=== PATIENT | female | born 1985 | race Caucasian/White ===

== ENCOUNTER 2018-08-14 19:00 | Inpatient (IN) | payer MEDICAID, SELFPAY ==
--- NOTE | 2018-08-14 19:50 | C.PDOC ---
Time Seen by Provider: 08/14/18 19:50 Chief Complaint (Nursing): Headache Past Medical History Vital Signs: Last Vital Signs Temp 98.2 F 08/14/18 19:10 Pulse 82 08/14/18 19:10 Resp 18 08/14/18 19:10 BP 140/82 08/14/18 19:10 Pulse Ox 98 08/14/18 19:10 - Medical History PMH: Depression, Hypercholesterolemia, Depression Denies: Diabetes, Hepatitis, HIV, HTN, Seizures, Sexually Transmitted Disease Surgical History: Cholecystectomy - [facility] GROUP PSYCHOTHERAPY (07/12/18) INDIVIDUAL PSYCHOTHERAPY, COGNITIVE-BEHAVIORAL (07/12/18) Family History: States: Unknown Family Hx - Social History Hx Alcohol Use: No Hx Substance Use: No ED Course And Treatment O2 Sat by Pulse Oximetry: 98 Disposition Counseled Patient/Family Regarding: Studies Performed, Diagnosis - Disposition Disposition Time: 19:50
[2018-08-14] MEDS ORDERED: Sodium Chloride 0.9% 1,000 ML IV SCH (20:00)
--- NOTE | 2018-08-14 20:02 | C.PDOC ---
History Of Present Illness The patient presents to the ED for evaluation of a headache which began around 3 days ago. Patient reports associated dizziness, intermittent left-sided tongue numbness, and occasional slurred speech. Patient reports her headache has worsened today and presents to the ED for further evaluation. She has not taken any medicine for symptoms and denies vision change, weakness, fever, chills, nausea, vomiting, and trauma. Time Seen by Provider: 08/14/18 19:50 Chief Complaint (Nursing): Headache History Per: Patient History/Exam Limitations: no limitations Onset/Duration Of Symptoms: Days (3), Intermittent Episodes Current Symptoms Are (Timing): Worse Severity: Moderate Pain Scale Rating Of: 4 Recent travel outside of the [place]: No Additional History Per: Patient, Family Past Medical History Reviewed: Historical Data, Nursing Documentation, Vital Signs Vital Signs: Last Vital Signs Temp 98.2 F 08/14/18 19:10 Pulse 82 08/14/18 19:10 Resp 18 08/14/18 19:10 BP 140/82 08/14/18 19:10 Pulse Ox 98 08/14/18 19:10 - Medical History PMH: Depression, Hypercholesterolemia, Depression Denies: Diabetes, Hepatitis, HIV, HTN, Seizures, Sexually Transmitted Disease Surgical History: Cholecystectomy - [facility] Procedures GROUP PSYCHOTHERAPY (07/12/18) INDIVIDUAL PSYCHOTHERAPY, COGNITIVE-BEHAVIORAL (07/12/18) Family History: States: Unknown Family Hx - Social History Hx Alcohol Use: No Hx Substance Use: No Review Of Systems Constitutional: Negative for: Fever, Chills Eyes: Negative for: Vision Change Cardiovascular: Negative for: Chest Pain, Palpitations Respiratory: Negative for: Cough, Shortness of Breath Gastrointestinal: Negative for: Nausea, Vomiting Genitourinary: Negative for: Dysuria Musculoskeletal: Negative for: Neck Pain, Shoulder Pain, Arm Pain, Back Pain Skin: Negative for: Rash, Lesions, Jaundice, Bruising Neurological: Positive for: Numbness (left-sided, tongue ), Change in Speech (occasional slurred), Headache, Dizziness. Negative for: Weakness Psych: Negative for: Anxiety Physical Exam - Physical Exam Appears: Non-toxic, In Acute Distress Skin: Warm, Dry Head: Normacephalic Eye(s): bilateral: Normal Inspection Oral Mucosa: Moist Tongue: Normal Appearing Neck: Supple Chest: Symmetrical, No Deformity, No Tenderness Cardiovascular: Rhythm Regular, No Murmur Respiratory: No Rales, No Rhonchi, No Wheezing Gastrointestinal/Abdominal: Soft, No Tenderness, No Distention Back: Normal Inspection Extremity: Normal ROM, Capillary Refill (less than 2 seconds ) Extremity: Bilateral: Atraumatic, No Pedal Edema, Normal Color And Temperature, Normal ROM Pulses: Left Dorsalis Pedis: Normal, Right Dorsalis Pedis: Normal Neurological/Psych: Oriented x3, Other (flat affect ) Gait: Steady ED Course And Treatment - Laboratory Results Result Diagrams: 08/14/18 20:12 08/14/18 20:12 O2 Sat by Pulse Oximetry: 98 (on RA ) Pulse Ox Interpretation: Normal Progress Note: Bloodwork, EKG, CXR, CT Head, CTA Head ordered and reviewed. IV fluids given. NIHSS Stroke Scale - Date/Time Evaluation Performed Date Performed: 08/14/18 Time Performed: 19:55 When Was NIHSS Performed: Baseline - How Severe is the Stroke Level of Consciousness: 0=Alert LOC to Questions: 0=Both comments correct LOC to commands: 0=Obeys both correctly Best Gaze: 0=Normal Visual: 0=No visual loss Facial: 0=Normal Motor Arm - Left: 0=No drift Motor Arm - Right: 0=No drift Motor Leg - Left: 0=No drift Motor Leg - Right: 0=No drift Limb Ataxia: 0=Absent Sensory: 0=Normal Best Language: 0=No aphasia Dysarthia: 0=Normal articulation Extinction & Inattention (Neglect): 0=Normal, no object Score: 0 Disposition Discussed With : Annmarie Xiong Comment: accepted the pt on his service and took over the care at 9:45 PM Doctor Will See Patient In The: Hospital Counseled Patient/Family Regarding: Studies Performed, Diagnosis, Need For Followup - Disposition Disposition: HOSPITALIZED Disposition Time: 20:01 Condition: FAIR Forms: [facility] (Turkish) - POA Present On Arrival: Poor Glycemic Control - Clinical Impression Clinical Impression: Headache, Paresthesia - Scribe Statement The provider has reviewed the documentation as recorded by the Scribe (Apryl Xiong) Provider Attestation: All medical record entries made by the Scribe were at my direction and personally dictated by me. I have reviewed the chart and agree that the record accurately reflects my personal performance of the history, physical exam, medical decision making, and the department course for this patient. I have also personally directed, reviewed, and agree with the discharge instructions and d isposition. Decision To Admit - Pt Status Changed To: Hospital Disposition Of: Inpatient - Admit Certification Admit to Inpatient:: After my assessment, the patient will require hospi talization for at least two midnights. This is because of the severity of symptoms shown, intensity of services needed, and/or the medical risk in this patient being treated as an outpatient. - InPatient: Physician Admission Certification: I certify that this patient requires 2 or more midnights of care for the following reason:: After my assessment, the pat ient will require hospitalization for at least two midnights. This is because of the severity of symptoms shown, intensity of services needed, and/or the medical risk in this patient being treated as an outpatient. - . Bed Request Type: Telemetry Admitting Physician: Annmarie Xiong Patient Diagnosis: Headache, Paresthesia
[2018-08-14] MEDS ORDERED: Iohexol 350mg/ml 100 ML ONE (20:07)
[2018-08-14 20:17] LABS: BASO # 0.1 K/uL (0.0-0.2); EOS # 0.2 K/uL (0.0-0.7); EOS % 2.5 % (0.0-4.0); HEMOGLOBIN 14.6 g/dL (11.0-16.0); LYMPH # 3.9 K/uL (1.0-4.3); LYMPH % 40.2 % (20.0-40.0); MEAN CORPUSCULAR HEMOGLOBIN 28.9 pg (27.0-31.0); MEAN CORPUSCULAR HGB CONC 32.1 g/dL (33.0-37.0); MONO # 0.6 K/uL (0.0-0.8); MONO % 6.5 % (0.0-10.0); NEUT # 4.8 K/uL (1.8-7.0); NEUT % 49.8 % (50.0-75.0); NRBC % 0.1 % (0.0-2.0); RBC 5.05 Mil/uL (3.80-5.20); WHITE BLOOD COUNT 9.6 K/uL (4.8-10.8)
[2018-08-14 20:21] LABS: MEAN CELL VOLUME 90.3 fL (81.0-99.0)
[2018-08-14 20:26] LABS: PROTHROMBIN TIME 11.1 SECONDS (9.7-12.2)
[2018-08-14 20:30] LABS: ALB/GLOB RATIO 1.4 (1.0-2.1); ALBUMIN 4.7 g/dL (3.5-5.0); ALT/SGPT 37 U/L (9-52); AST/SGOT 28 U/L (14-36); BLOOD UREA NITROGEN 13 mg/dL (7-17); CALCIUM 9.1 mg/dl (8.6-10.4); GFR NON-AFRICAN AMERICAN > 60; HDL CHOLESTEROL 63 mg/dL (30-70)
[2018-08-14 20:42] LABS: LDL CHOLESTEROL 126 mg/dL (0-129)
[2018-08-14 21:59] LABS: HCG,QUALITATIVE URINE NEGATIVE (NEGATIVE)
[2018-08-14 22:04] LABS: SQUAMOUS EPITHIAL 1 /hpf (0-5); URINE BILIRUBIN NEGATIVE (NEGATIVE); URINE BLOOD NEGATIVE (NEGATIVE); URINE CLARITY Clear (Clear); URINE COLOR Straw (YELLOW); URINE GLUCOSE (UA) NORMAL (Normal); URINE LEUKOCYTE ESTERASE NEG Leu/uL (Negative); URINE PROTEIN NEGATIVE (NEGATIVE); URINE UROBILINOGEN NORMAL mg/dL (0.2-1.0)
--- NOTE | 2018-08-14 22:40 | CP.PCM.HP ---
Present on Admission - Present on Admission Any Indicators Present on Admission: No Past Patient History - Tetanus Immunizations Tetanus Immunization: Unknown - Past Social History Smoking Status: Never Smoked - CARDIAC Hx Hypercholesterolemia: Yes Hx Hypertension: No - PULMONARY Hx Tuberculosis: No - NEUROLOGICAL Hx Seizures: No - HEMATOLOGICAL/ONCOLOGICAL Hx Human Immunodeficiency Virus (HIV): No - GENITOURINARY/GYNECOLOGICAL Hx Sexually Transmitted Disorders: No - PSYCHIATRIC Hx Depression: Yes Hx Substance Use: No - SURGICAL HISTORY Hx Cholecystectomy: Yes - ANESTHESIA Hx Anesthesia: Yes Hx Anesthesia Reactions: No Hx Malignant Hyperthermia: No Meds Allergies/Adverse Reactions: Allergies Allergy/AdvReac Type Severity Reaction Status Date / Time Penicillins Allergy RASH Verified 08/14/18 19:15 Results - Vital Signs Recent Vital Signs: Last Vital Signs Temp 98.2 F 08/14/18 19:10 Pulse 80 08/14/18 21:00 Resp 14 08/14/18 21:00 BP 118/78 08/14/18 21:00 Pulse Ox 98 08/14/18 21:47 - Labs Result Diagrams: 08/14/18 20:12 08/14/18 20:12 Labs: Laboratory Results - last 24 hr 08/14/18 08/14/18 08/14/18 19:57 20:12 20:12 WBC 9.6 D RBC 5.05 Hgb 14.6 Hct 45.5 MCV 90.3 D MCH 28.9 MCHC 32.1 L RDW 14.0 Plt Count 302 MPV 8.0 Neut % (Auto) 49.8 L Lymph % (Auto) 40.2 H Orange % (Auto) 6.5 Eos % (Auto) 2.5 Baso % (Auto) 1.0 Neut # (Auto) 4.8 Lymph # (Auto) 3.9 Orange # (Auto) 0.6 Eos # (Auto) 0.2 Baso # (Auto) 0.1 PT 11.1 INR 1.0 APTT 26 Sodium Potassium Chloride Carbon Dioxide Anion Gap BUN Creatinine Est GFR ( Amer) Est GFR (Non-Af Amer) POC Glucose (mg/dL) 92 Random Glucose Hemoglobin A1c Calcium Total Bilirubin AST ALT Alkaline Phosphatase Troponin I Total Protein Albumin Globulin Albumin/Globulin Ratio Triglycerides Cholesterol LDL Cholesterol Direct HDL Cholesterol Urine Color Urine Clarity Urine pH Ur Specific [place] Urine Protein Urine Glucose (UA) Urine Ketones Urine Blood Urine Nitrate Urine Bilirubin Urine Urobilinogen Ur Leukocyte Esterase Urine RBC (Auto) Ur Squamous Epith Cells Urine HCG, Qual Blood Type Antibody Screen Antibody Identification 08/14/18 08/14/18 08/14/18 20:12 20:12 20:12 WBC RBC Hgb Hct MCV MCH MCHC RDW Plt Count MPV Neut % (Auto) Lymph % (Auto) Orange % (Auto) Eos % (Auto) Baso % (Auto) Neut # (Auto) Lymph # (Auto) Orange # (Auto) Eos # (Auto) Baso # (Auto) PT INR APTT Sodium 136 Potassium 4.0 Chloride 101 Carbon Dioxide 25 Anion Gap 15 BUN 13 Creatinine 0.8 Est GFR ( Amer) > 60 Est GFR (Non-Af Amer) > 60 POC Glucose (mg/dL) Random Glucose 58 L D Hemoglobin A1c 5.4 Calcium 9.1 Total Bilirubin 0.4 AST 28 ALT 37 Alkaline Phosphatase 52 Troponin I < 0.0120 Total Protein 8.0 Albumin 4.7 Globulin 3.3 Albumin/Globulin Ratio 1.4 Triglycerides 145 D Cholesterol 216 H LDL Cholesterol Direct 126 HDL Cholesterol 63 Urine Color Urine Clarity Urine pH Ur Specific [place] Urine Protein Urine Glucose (UA) Urine Ketones Urine Blood Urine Nitrate Urine Bilirubin Urine Urobilinogen Ur Leukocyte Esterase Urine RBC (Auto) Ur Squamous Epith Cells Urine HCG, Qual Blood Type A NEGATIVE Antibody Screen Positive Antibody Identification ANTI D DUE TO RhoGAM 08/14/18 21:50 WBC RBC Hgb Hct MCV MCH MCHC RDW Plt Count MPV Neut % (Auto) Lymph % (Auto) Orange % (Auto) Eos % (Auto) Baso % (Auto) Neut # (Auto) Lymph # (Auto) [place] # (Auto) Eos # (Auto) Baso # (Auto) PT INR APTT Sodium Potassium Chloride Carbon Dioxide Anion Gap BUN Creatinine Est GFR ( Amer) Est GFR (Non-Af Amer) POC Glucose (mg/dL) Random Glucose Hemoglobin A1c Calcium Total Bilirubin AST ALT Alkaline Phosphatase Troponin I Total Protein Albumin Globulin Albumin/Globulin Ratio Triglycerides Cholesterol LDL Cholesterol Direct HDL Cholesterol Urine Color Straw Urine Clarity Clear Urine pH 6.0 Ur Specific [place] 1.010 Urine Protein Negative Urine Glucose (UA) Normal Urine Ketones Negative Urine Blood Negative Urine Nitrate Negative Urine Bilirubin Negative Urine Urobilinogen Normal Ur Leukocyte Esterase Neg Urine RBC (Auto) < 1 Ur Squamous Epith Cells 1 Urine HCG, Qual Negative Blood Type Antibody Screen Antibody Identification Assessment & Plan - Assessment and Plan (Free Text) Plan: asp crestoir mri mra neuro
[2018-08-14] MEDS ORDERED: Dextrose 50% SYRINGE Inj (50 ml) ONE (23:31)
[2018-08-15] MEDS ORDERED: Dextrose 50% SYRINGE Inj (50 ml) IV STA (00:05)
[2018-08-15] MEDS: Dextrose 5%/0.45% NS 1,000 ML IV SCH ×3 (01:00→21:59)
--- NOTE | 2018-08-15 10:06 | CT ---
Date of service: 08/14/2018 PROCEDURE: CT HEAD WITHOUT CONTRAST. HISTORY: Code Stroke COMPARISON: None available. TECHNIQUE: Axial computed tomography images were obtained through the head/brain without intravenous contrast. Radiation dose: Total exam DLP = 1074.47 mGy-cm. This CT exam was performed using one or more of the following dose reduction techniques: Automated exposure control, adjustment of the mA and/or kV according to patient size, and/or use of iterative reconstruction technique. FINDINGS: HEMORRHAGE: No intracranial hemorrhage. BRAIN: No mass effect or edema. No atrophy or chronic microvascular ischemic changes. VENTRICLES: Unremarkable. No hydrocephalus. CALVARIUM: Unremarkable. PARANASAL SINUSES: Unremarkable as visualized. No significant inflammatory changes. MASTOID AIR CELLS: Unremarkable as visualized. No inflammatory changes. OTHER FINDINGS: None. IMPRESSION: Normal CT of the Head. No evidence of acute infarct. No intracranial mass or hemorrhage. The preliminary findings for this examination were reported by [facility] at 8:32 p.m. on 08/14/2018. There is concurrence of this report with the preliminary findings.
[2018-08-15] MEDS: Enoxaparin 40 mg Syringe SC SCH (10:33)
[2018-08-15] MEDS: Pantoprazole 40 mg EC Tab PO SCH (10:33)
--- NOTE | 2018-08-15 10:34 | CT ---
Date of service: 08/14/2018 PROCEDURE: CT Angiography of the Brain. HISTORY: numb left tongue and headache COMPARISON: None available. TECHNIQUE: CT angiography of the head and neck was performed following intravenous contrast administration. Coronal and sagittal maximum intensity projection reformatted images were generated. Contrast Dose: Omnipaque 350, 100 cc Radiation dose: Total exam DLP = 622.72 mGy-cm. This CT exam was performed using one or more of the following dose reduction techniques: Automated exposure control, adjustment of the mA and/or kV according to patient size, and/or use of iterative reconstruction technique. FINDINGS: INTERNAL CEREBRAL ARTERIES: Unremarkable. The skull base, petrous, cavernous and supraclinoid segments are bilaterally widely patent. ANTERIOR CEREBRAL ARTERIES: The bilateral A1 and A2 segments are patent with mild hypoplasia of the right A1 segment. Smaller distal branches unremarkable, as visualized. MIDDLE CEREBRAL ARTERIES: Unremarkable. M1 and M2 segments are widely patent. Perisylvian branches grossly symmetric. POSTERIOR CIRCULATION: Basilar Artery: Unremarkable. Distal Vertebral Arteries: Unremarkable. Posterior Cerebral Arteries: Unremarkable. Posterior Inferior Cerebellar Arteries: Unremarkable. 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 Common Carotid arteries: The bilateral common carotid appear widely patent from their origins to their bifurcations with no significant stenosis appreciated. No evidence to suggest common carotid artery dissection. Internal Carotid arteries: No significant stenosis is appreciated throughout the cervical internal carotid artery segments bilaterally and there is no evidence of dissection either. External Carotid arteries: Appear unremarkable bilaterally. Vertebral arteries: The bilateral vertebral arteries appear normal in caliber from their origins to their distal cervical segments. No significant stenosis or definite pattern of dissection. ANEURYSM/ VASCULAR MALFORMATIONS: None. OTHER FINDINGS: None. IMPRESSION: Unremarkable CT Angiography of the Brain and Neck.
--- NOTE | 2018-08-15 11:08 | RAD ---
Chest x-ray single frontal view HISTORY: Code stroke. Comparison: None available. Findings: Mild venous congestion. Heart size within normal limits. Impression: Mild venous congestion.
--- NOTE | 2018-08-15 11:42 | MRI ---
Date of service: 08/15/2018 PROCEDURE: Magnetic Resonance Angiography Brain HISTORY: left tongue numbness COMPARISON: None available. TECHNIQUE: 3D time of flight MR angiography of the intracranial arteries was performed. Rotating maximum intensity projection images were generated. FINDINGS: INTERNAL CAROTID ARTERIES: There is a tiny 2.8 x 2.0 mm aneurysm extending medially off the distal cavernous left ICA with the right cavernous ICA unremarkable. Both internal carotid artery cavernous segments are widely patent regardless. The skull base, petrous, and supraclinoid segments are bilaterally widely patient. ANTERIOR CEREBRAL ARTERIES: Unremarkable. A1 and A2 segments are widely patent. Smaller distal branches unremarkable, as visualized. MIDDLE CEREBRAL ARTERIES: Unremarkable. M1 and M2 segments are widely patent. Perisylvian branches grossly symmetric. POSTERIOR CIRCULATION: Basilar Artery: Unremarkable. Distal Vertebral Arteries: Left dominant vertebrobasilar circulation identified. Posterior Cerebral Arteries: Unremarkable. Posterior Inferior Cerebellar Arteries: Unremarkable. ANEURYSM/ VASCULAR MALFORMATIONS: None. OTHER FINDINGS: None. IMPRESSION: No occlusion or significant stenosis significant stenosis identified in MR angiography of the brain. However, there is a 2.8 x 2.0 mm aneurysm identified medially off the distal left ICA cavernous segment.
--- NOTE | 2018-08-15 11:52 | MRI ---
Date of service: 08/15/2018 PROCEDURE: MRI BRAIN WITHOUT CONTRAST HISTORY: headache and numbness left side tongue COMPARISON: None available. TECHNIQUE: Multiplanar, multisequence MR images of the brain were obtained without intravenous contrast enhancement. FINDINGS: HEMORRHAGE: None DWI: No evidence of an acute or early subacute infarction. BRAIN PARENCHYMA: Intrinsic signal throughout the kerr and white matter structures above below the tentorium appears within normal limits including the brainstem. There is no mass effect, parenchymal edema or loss of the corticomedullary differentiation. Midline brain anatomy appears within normal limits including the corpus callosum, brainstem and craniocervical junction. There is no suspicious extra-axial fluid collection identified. VENTRICLES: Unremarkable. No hydrocephalus. CRANIUM: Unremarkable. ORBITS: Grossly unremarkable. PARANASAL SINUSES/MASTOIDS: Clear VASCULAR SYSTEM: Skull base flow voids intact. OTHER FINDINGS: None. IMPRESSION: Unremarkable non contrast enhanced MRI of the brain.
--- NOTE | 2018-08-15 11:57 | CP.PCM.CON ---
History of Present Illness - History of Present Illness History of Present Illness: Neurology Consult note for Dr. Goodman HPI: Patient is a 32 year old female with history of asthma, depression, hyperlipidemia who presents for 4 day history of intermittent numbness to the right side of her tongue that initially started 4 days ago, associated with the sensation that her tongue deviates to the left. She states that her symptoms of numbness last for "hours" but come and go on their own. She denies eating any new foods. She states that she had an episode of dizziness described as room spinning sensation that lasted a few seconds 4 days ago when she bent over to pick something up, but resolved afterward. She states she has not had any dizziness since then. She states she started to experience a headache described as "itching" and "pulsing" of her head all over associated with the feeling that something was crawling , rated 5/10, that was not aggravated by light or sound. She denies recent falls or head trauma or accidents. She denies history of seizures, lightheadedness, headache, nausea, vomiting, vision changes, hearing changes. She denies any jerking or facial tics. She denies experiencing headache or dizziness currently but states that the right side of her tongue feels a little numb compared to the left. 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 She was admitted at [facility] for psychiatric evaluation and discharged home with Abilify 2mg PO HS, Lexapro 10mg PO HS, Trazadone 50mg PO HS. She states she has been compliant with her medications. She denies any thoughts of harming self or others. PMH: asthma, depression, hyperlipidemia PSH: cholecystectomy Social hx: denies alcohol, tobacco or drug use. Works in an office. Currently lives with 5 year old daughter, at home. Home meds: Fenofibrate, Abilify 2mg PO HS, Lexapro 10mg PO HS, Trazadone 50mg PO HS Allergies: PCN, lactose -> rash PMD: [facility] Gastel Psych: at [facility] Review of Systems - Constitutional Constitutional: Headache. absent: Chills, Fever - EENT Eyes: absent: Blurred Vision, Change in Vision, Loss of Vision Ears: Dizziness. absent: Decreased Hearing - Cardiovascular Cardiovascular: absent: Chest Pain, Dyspnea, Irregular Heart Rhythm - Respiratory Respiratory: absent: Cough, Dyspnea - Gastrointestinal Gastrointestinal: absent: Abdominal Pain, Nausea, Vomiting - Reproductive: Female Reproductive:Female: Menses 1-7 Days - Musculoskeletal Musculoskeletal: Numbness (right tongue numbness). absent: Back Pain, Neck Pain - Neurological Neurological: absent: Confusion, Focal Weakness, Loss of Vision - Psychiatric Psychiatric: Depression. absent: Anxiety Past Patient History - Tetanus Immunizations Tetanus Immunization: Unknown - Past Medical History & Family History Past Medical History?: Yes - Past Social History Smoking Status: Never Smoked - CARDIAC Hx Hypercholesterolemia: Yes - PULMONARY Hx Tuberculosis: No - NEUROLOGICAL Hx Seizures: No - HEMATOLOGICAL/ONCOLOGICAL Hx Human Immunodeficiency Virus (HIV): No - MUSCULOSKELETAL/RHEUMATOLOGICAL Hx Falls: No - GENITOURINARY/GYNECOLOGICAL Hx Sexually Transmitted Disorders: No - PSYCHIATRIC Hx Depression: Yes Hx Substance Use: No - SURGICAL HISTORY Hx Cholecystectomy: Yes - ANESTHESIA Hx Anesthesia: Yes Hx Anesthesia Reactions: No Hx Malignant Hyperthermia: No Meds Allergies/Adverse Reactions: Allergies Allergy/AdvReac Type Severity Reaction Status Date / Time Penicillins Allergy RASH Verified 08/14/18 19:15 - Medications Medications: Current Medications Aspirin (Aspirin) 325 mg PO DAILY [facility] Last Admin: 08/15/18 10:33 Dose: 325 mg Enoxaparin Sodium (Lovenox) 40 mg SC DAILY [facility] Last Admin: 08/15/18 10:33 Dose: 40 mg Dextrose/Sodium Chloride (Dextrose 5%/0.45% Ns 1000 Ml) 1,000 mls @ 75 mls/hr IV .[id number] [facility] Last Admin: 08/15/18 01:00 Dose: 75 mls/hr Pantoprazole Sodium (Protonix Ec Tab) 40 mg PO DAILY [facility] Last Admin: 08/15/18 10:33 Dose: 40 mg Physical Exam - Constitutional Appears: Well, No Acute Distress - Head Exam Head Exam: ATRAUMATIC, NORMOCEPHALIC - Eye Exam Eye Exam: EOMI, PERRL. absent: Nystagmus - ENT Exam ENT Exam: Mucous Membranes Moist - Neck Exam Neck exam: Positive for: Full Rom. Negative for: Lymphadenopathy, Tenderness - Respiratory Exam Respiratory Exam: Clear to Auscultation Bilateral, NORMAL BREATHING PATTERN - Cardiovascular Exam Cardiovascular Exam: REGULAR RHYTHM, +S1, +S2 - GI/Abdominal Exam GI & Abdominal Exam: Normal Bowel Sounds, Soft. absent: Tenderness - Extremities Exam Extremities exam: Positive for: pedal pulses present. Negative for: calf tenderness, pedal edema - Neurological Exam Neurological exam: Alert, Oriented x3 Additional comments: Strength 5/5 in upper and lower extremities Sensation equal in upper and lower extremities Tongue: decreased sensation on right side of tongue. no obvious deviation of tongue to left on exam. Tongue midline Patient only opens mouth slightly. No obvious lacerations on tongue Sensation equal in face bilaterally Finger to nose intact Heel to parker intact. - Psychiatric Exam Psychiatric exam: Flat Affect - Skin Skin Exam: Dry, Intact, Warm Results - Vital Signs Recent Vital Signs: Last Vital Signs Temp 97.9 F 08/15/18 07:15 Pulse 92 H 08/15/18 07:15 Resp 20 08/15/18 07:15 BP 130/84 08/15/18 07:15 Pulse Ox 98 08/15/18 07:15 - Labs Result Diagrams: 08/14/18 20:12 08/14/18 20:12 Labs: Laboratory Results - last 24 hr 08/14/18 08/14/18 08/14/18 19:57 20:12 20:12 WBC 9.6 D RBC 5.05 Hgb 14.6 Hct 45.5 MCV 90.3 D MCH 28.9 MCHC 32.1 L RDW 14.0 Plt Count 302 MPV 8.0 Neut % (Auto) 49.8 L Lymph % (Auto) 40.2 H [place] % (Auto) 6.5 Eos % (Auto) 2.5 Baso % (Auto) 1.0 Neut # (Auto) 4.8 Lymph # (Auto) 3.9 Sumner # (Auto) 0.6 Eos # (Auto) 0.2 Baso # (Auto) 0.1 PT 11.1 INR 1.0 APTT 26 Sodium Potassium Chloride Carbon Dioxide Anion Gap BUN Creatinine Est GFR ( Amer) Est GFR (Non-Af Amer) POC Glucose (mg/dL) 92 Random Glucose Hemoglobin A1c Calcium Total Bilirubin AST ALT Alkaline Phosphatase Troponin I Total Protein Albumin Globulin Albumin/Globulin Ratio Triglycerides Cholesterol LDL Cholesterol Direct HDL Cholesterol Urine Color Urine Clarity Urine pH Ur Specific [place] Urine Protein Urine Glucose (UA) Urine Ketones Urine Blood Urine Nitrate Urine Bilirubin Urine Urobilinogen Ur Leukocyte Esterase Urine RBC (Auto) Ur Squamous Epith Cells Urine HCG, Qual Blood Type Antibody Screen Antibody Identification 08/14/18 08/14/18 08/14/18 20:12 20:12 20:12 WBC RBC Hgb Hct MCV MCH MCHC RDW Plt Count MPV Neut % (Auto) Lymph % (Auto) [place] % (Auto) Eos % (Auto) Baso % (Auto) Neut # (Auto) Lymph # (Auto) [place] # (Auto) Eos # (Auto) Baso # (Auto) PT INR APTT Sodium 136 Potassium 4.0 Chloride 101 Carbon Dioxide 25 Anion Gap 15 BUN 13 Creatinine 0.8 Est GFR ( Amer) > 60 Est GFR (Non-Af Amer) > 60 POC Glucose (mg/dL) Random Glucose 58 L D Hemoglobin A1c 5.4 Calcium 9.1 Total Bilirubin 0.4 AST 28 ALT 37 Alkaline Phosphatase 52 Troponin I < 0.0120 Total Protein 8.0 Albumin 4.7 Globulin 3.3 Albumin/Globulin Ratio 1.4 Triglycerides 145 D Cholesterol 216 H LDL Cholesterol Direct 126 HDL Cholesterol 63 Urine Color Urine Clarity Urine pH Ur Specific [place] Urine Protein Urine Glucose (UA) Urine Ketones Urine Blood Urine Nitrate Urine Bilirubin Urine Urobilinogen Ur Leukocyte Esterase Urine RBC (Auto) Ur Squamous Epith Cells Urine HCG, Qual Blood Type A NEGATIVE Antibody Screen Positive Antibody Identification ANTI D DUE TO RhoGAM 08/14/18 21:50 WBC RBC Hgb Hct MCV MCH MCHC RDW Plt Count MPV Neut % (Auto) Lymph % (Auto) [place] % (Auto) Eos % (Auto) Baso % (Auto) Neut # (Auto) Lymph # (Auto) [place] # (Auto) Eos # (Auto) Baso # (Auto) PT INR APTT Sodium Potassium Chloride Carbon Dioxide Anion Gap BUN Creatinine Est GFR ( Amer) Est GFR (Non-Af Amer) POC Glucose (mg/dL) Random Glucose Hemoglobin A1c Calcium Total Bilirubin AST ALT Alkaline Phosphatase Troponin I Total Protein Albumin Globulin Albumin/Globulin Ratio Triglycerides Cholesterol LDL Cholesterol Direct HDL Cholesterol Urine Color Straw Urine Clarity Clear Urine pH 6.0 Ur Specific [place] 1.010 Urine Protein Negative Urine Glucose (UA) Normal Urine Ketones Negative Urine Blood Negative Urine Nitrate Negative Urine Bilirubin Negative Urine Urobilinogen Normal Ur Leukocyte Esterase Neg Urine RBC (Auto) < 1 Ur Squamous Epith Cells 1 Urine HCG, Qual Negative Blood Type Antibody Screen Antibody Identification Assessment & Plan - Assessment and Plan (Free Text) Assessment: 32 year old female with history of asthma, hyperlipidemia and depression who presents for right sided tongue numbness. Plan: Numbness of tongue Distal Left ICA aneurysm CT head: Normal CT of the Head. No evidence of acute infarct. No intracranial mass or hemorrhage. CTA head/neck: unremarkable MRI brain without contrast Unremarkable non contrast enhanced MRI of the brain. MRA No occlusion or significant stenosis significant stenosis identified in MR angiography of the brain. However, there is a 2.8 x 2.0 mm aneurysm identified medially off the distal left ICA cavernous segment. Neurointerventionalist Dr. Davis consulted regarding aneurysm. Suggest psychiatric evaluation to r/o conversion disorder. Case discussed with Dr. Rex Yi, PGY1
--- NOTE | 2018-08-15 14:17 | CARD ---
APPROVED REPORT Date of service: 08/14/2018 EKG Measurement Heart [id number] <Conclusion> Normal sinus rhythm Normal ECG
--- NOTE | 2018-08-15 18:17 | CP.PCM.PN ---
Subjective - Date & Time of Evaluation Date of Evaluation: 08/15/18 Time of Evaluation: 11:15 - Subjective Subjective: clinically same Objective - Vital Signs/Intake and Output Vital Signs (last 24 hours): Temp Pulse Resp BP Pulse Ox 97.9 F 106 H 20 130/84 98 08/15/18 07:15 08/15/18 16:30 08/15/18 07:15 08/15/18 07:15 08/15/18 07:15 - Medications Medications: Current Medications Aspirin (Aspirin) 325 mg PO DAILY [facility] Last Admin: 08/15/18 10:33 Dose: 325 mg Enoxaparin Sodium (Lovenox) 40 mg SC DAILY [facility] Last Admin: 08/15/18 10:33 Dose: 40 mg Dextrose/Sodium Chloride (Dextrose 5%/0.45% Ns 1000 Ml) 1,000 mls @ 75 mls/hr IV .[id number] [facility] Last Admin: 08/15/18 14:13 Dose: Not Given Pantoprazole Sodium (Protonix Ec Tab) 40 mg PO DAILY [facility] Last Admin: 08/15/18 10:33 Dose: 40 mg - Labs Labs: 08/14/18 20:12 08/14/18 20:12 PT 11.1 SECONDS (9.7-12.2) 08/14/18 20:12 INR 1.0 08/14/18 20:12 APTT 26 SECONDS (21-34) 08/14/18 20:12 - Constitutional Appears: Well - Head Exam Head Exam: ATRAUMATIC, NORMAL INSPECTION, NORMOCEPHALIC - Eye Exam Eye Exam: EOMI, Normal appearance, PERRL Pupil Exam: NORMAL ACCOMODATION, PERRL - ENT Exam ENT Exam: Mucous Membranes Moist, Normal Exam - Neck Exam Neck Exam: Full ROM, Normal Inspection. absent: Lymphadenopathy - Respiratory Exam Respiratory Exam: Decreased Breath Sounds - Cardiovascular Exam Cardiovascular Exam: REGULAR RHYTHM, +S1, +S2 - GI/Abdominal Exam GI & Abdominal Exam: Soft, Diminished Bowel Sounds - Rectal Exam Rectal Exam: Deferred
--- NOTE | 2018-08-15 18:33 | CP.PCM.CON ---
History of Present Illness - History of Present Illness History of Present Illness: [facility] [phone]Arcot [address].Turkell-Parrella Dr.Liff Barbara Subramaniangarebeca MSNA,AGNP-BC, CHIEF RADIATION THERAPIST The patient is a 32 year old female PmHx asthma, depression, HDL. Pt came to the ED on 08/14/18 with complaint of severe headache, tongue numbness on the right side that began on Monday08/12/18 and has continued on and off for hours at a time, blurred vision via right eye with the severe headache on 08/14/18. Pt discussed a one time episode of dizziness that occured last week when she leaned over to remove her shoes, pt stated she was spinning for a few seconds and it resolved. Pt denies h/o headache,dizziness,numbness,change in vision prior to the episode described above. CT Head-no evidence of acute infarct, no intracranial mass or hemorrhage MRA Head-2.8x2.0mm aneurysm medially off distal Left ICA cavernous segment; no o cclusion or significant stenosis In reference to the h/o depression, the pt had a recent suicide attempt 07/11/18 with overdose on Ibuprofen, Aleve, Fenofibrate. 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 Pt was hospitalized at [facility] in the psychiatric unit then discharged on Abilify 2mg QD Lexapro 10mg QD,Trazadone 50mg PRN. Pt has been compliant with her medications and her follow visits with psychiatry, denies thoughts of harming herself or others. Review of Systems - Constitutional Constitutional: As Per HPI - Reproductive: Female Additional comments: Post- per pt Past Patient History - Tetanus Immunizations Tetanus Immunization: Unknown - Past Medical History & Family History Past Medical History?: Yes - Past Social History Smoking Status: Never Smoked Chewing Tobacco Use: No Cigar Use: No Alcohol: None Drugs: Denies Home Situation {Lives}: With Family - CARDIAC Hx Cardiac Disorders: No Hx Angina: No Hx Atrial Fibrillation: No Hx Hypercholesterolemia: Yes - PULMONARY Hx Asthma: Yes Hx Tuberculosis: No - NEUROLOGICAL Hx Neurological Disorder: No Hx Migraine: No Hx Seizures: No - HEENT Hx HEENT Problems: No Hx Difficulty Chewing: No - ENDOCRINE/METABOLIC Hx Endocrine Disorders: No Hx Diabetes Mellitus Type 1: No Hx Diabetes Mellitus Type 2: No Hx Hyperthyroidism: No Hx Hypothyroidism: No - HEMATOLOGICAL/ONCOLOGICAL Hx Blood Disorders: No Hx Human Immunodeficiency Virus (HIV): No - MUSCULOSKELETAL/RHEUMATOLOGICAL Hx Falls: No - GASTROINTESTINAL Hx Gastrointestinal Disorders: No - GENITOURINARY/GYNECOLOGICAL Hx Sexually Transmitted Disorders: No - PSYCHIATRIC Hx Depression: Yes Hx Substance Use: No Other/Comment: Recent attempted suicide - SURGICAL HISTORY Hx Cholecystectomy: Yes - ANESTHESIA Hx Anesthesia: Yes Hx Anesthesia Reactions: No Hx Malignant Hyperthermia: No Meds Allergies/Adverse Reactions: Allergies Allergy/AdvReac Type Severity Reaction Status Date / Time Penicillins Allergy RASH Verified 08/14/18 19:15 - Medications Medications: Current Medications Aspirin (Aspirin) 325 mg PO DAILY [facility] Last Admin: 08/15/18 10:33 Dose: 325 mg Enoxaparin Sodium (Lovenox) 40 mg SC DAILY [facility] Last Admin: 08/15/18 10:33 Dose: 40 mg Dextrose/Sodium Chloride (Dextrose 5%/0.45% Ns 1000 Ml) 1,000 mls @ 75 mls/hr IV .[id number] [facility] Last Admin: 08/15/18 14:13 Dose: Not Given Pantoprazole Sodium (Protonix Ec Tab) 40 mg PO DAILY [facility] Last Admin: 08/15/18 10:33 Dose: 40 mg Physical Exam - Constitutional Appears: Well - Head Exam Head Exam: ATRAUMATIC - Eye Exam Eye Exam: EOMI, Normal appearance Pupil Exam: NORMAL ACCOMODATION, PERRL - Neck Exam Neck exam: Positive for: Full Rom - Respiratory Exam Respiratory Exam: NORMAL BREATHING PATTERN - Rectal Exam Rectal Exam: Deferred - Neurological Exam Neurological exam: Alert, CN II-XII Intact, Oriented x3 - Psychiatric Exam Psychiatric exam: Normal Affect - Skin Skin Exam: Normal Color, Warm Results - Vital Signs Recent Vital Signs: Last Vital Signs Temp 97.9 F 08/15/18 07:15 Pulse 106 H 08/15/18 16:30 Resp 20 08/15/18 07:15 BP 130/84 08/15/18 07:15 Pulse Ox 98 08/15/18 07:15 - Labs Result Diagrams: 08/14/18 20:12 08/14/18 20:12 Labs: Laboratory Results - last 24 hr 08/14/18 08/14/18 08/14/18 19:57 20:12 20:12 WBC 9.6 D RBC 5.05 Hgb 14.6 Hct 45.5 MCV 90.3 D MCH 28.9 MCHC 32.1 L RDW 14.0 Plt Count 302 MPV 8.0 Neut % (Auto) 49.8 L Lymph % (Auto) 40.2 H [place] % (Auto) 6.5 Eos % (Auto) 2.5 Baso % (Auto) 1.0 Neut # (Auto) 4.8 Lymph # (Auto) 3.9 [place] # (Auto) 0.6 Eos # (Auto) 0.2 Baso # (Auto) 0.1 PT 11.1 INR 1.0 APTT 26 Sodium Potassium Chloride Carbon Dioxide Anion Gap BUN Creatinine Est GFR ( Amer) Est GFR (Non-Af Amer) POC Glucose (mg/dL) 92 Random Glucose Hemoglobin A1c Calcium Total Bilirubin AST ALT Alkaline Phosphatase Troponin I Total Protein Albumin Globulin Albumin/Globulin Ratio Triglycerides Cholesterol LDL Cholesterol Direct HDL Cholesterol Urine Color Urine Clarity Urine pH Ur Specific [place] Urine Protein Urine Glucose (UA) Urine Ketones Urine Blood Urine Nitrate Urine Bilirubin Urine Urobilinogen Ur Leukocyte Esterase Urine RBC (Auto) Ur Squamous Epith Cells Urine HCG, Qual Blood Type Antibody Screen Antibody Identification 08/14/18 08/14/18 08/14/18 20:12 20:12 20:12 WBC RBC Hgb Hct MCV MCH MCHC RDW Plt Count MPV Neut % (Auto) Lymph % (Auto) [place] % (Auto) Eos % (Auto) Baso % (Auto) Neut # (Auto) Lymph # (Auto) [place] # (Auto) Eos # (Auto) Baso # (Auto) PT INR APTT Sodium 136 Potassium 4.0 Chloride 101 Carbon Dioxide 25 Anion Gap 15 BUN 13 Creatinine 0.8 Est GFR ( Amer) > 60 Est GFR (Non-Af Amer) > 60 POC Glucose (mg/dL) Random Glucose 58 L D Hemoglobin A1c 5.4 Calcium 9.1 Total Bilirubin 0.4 AST 28 ALT 37 Alkaline Phosphatase 52 Troponin I < 0.0120 Total Protein 8.0 Albumin 4.7 Globulin 3.3 Albumin/Globulin Ratio 1.4 Triglycerides 145 D Cholesterol 216 H LDL Cholesterol Direct 126 HDL Cholesterol 63 Urine Color Urine Clarity Urine pH Ur Specific [place] Urine Protein Urine Glucose (UA) Urine Ketones Urine Blood Urine Nitrate Urine Bilirubin Urine Urobilinogen Ur Leukocyte Esterase Urine RBC (Auto) Ur Squamous Epith Cells Urine HCG, Qual Blood Type A NEGATIVE Antibody Screen Positive Antibody Identification ANTI D DUE TO RhoGAM 08/14/18 08/15/18 21:50 17:23 WBC RBC Hgb Hct MCV MCH MCHC RDW Plt Count MPV Neut % (Auto) Lymph % (Auto) [place] % (Auto) Eos % (Auto) Baso % (Auto) Neut # (Auto) Lymph # (Auto) [place] # (Auto) Eos # (Auto) Baso # (Auto) PT INR APTT Sodium Potassium Chloride Carbon Dioxide Anion Gap BUN Creatinine Est GFR ( Amer) Est GFR (Non-Af Amer) POC Glucose (mg/dL) 89 Random Glucose Hemoglobin A1c Calcium Total Bilirubin AST ALT Alkaline Phosphatase Troponin I Total Protein Albumin Globulin Albumin/Globulin Ratio Triglycerides Cholesterol LDL Cholesterol Direct HDL Cholesterol Urine Color Straw Urine Clarity Clear Urine pH 6.0 Ur Specific [place] 1.010 Urine Protein Negative Urine Glucose (UA) Normal Urine Ketones Negative Urine Blood Negative Urine Nitrate Negative Urine Bilirubin Negative Urine Urobilinogen Normal Ur Leukocyte Esterase Neg Urine RBC (Auto) < 1 Ur Squamous Epith Cells 1 Urine HCG, Qual Negative Blood Type Antibody Screen Antibody Identification Assessment & Plan - Assessment and Plan (Free Text) Assessment: NEUROLOGICAL EXAM Mental Status:awake, sitting up in bed Mental Status:alert and oriented to person, place and time, follows commands, regards on both sides Speech:no dysarthria, speech fluent Cranial Nerves:PERRL, BTT bilaterally, EOMI, no facial asymmetry, tongue midline Motor: 5/5 left and right upper and lower extremities Sensory: intact bilaterally Coordination: [id number] no dysmetria Gait: Deferred Miss Smith Reeves is a 32 year old female with PmHx listed above. Newly diagnosed 2.8x2.0mm aneurysm medially off distal left ICA cavernous segment. Neuro exam is normal. Plan: 1- Neuro checks per unit protocal 2-Agree with psychiatric consult to r/o conversion disorder 3-May consider diagnostic cerebral angiogram as an out patient 4-Continue to monitor and treat HDL 5-If I can be of further assistance please contact me. Initial consult 45 min spent on assessment, discussion with patient and family and plan - Date & Time Date: 08/15/18 Time: 17:50
[2018-08-16] MEDS: Dextrose 5%/0.45% NS 1,000 ML IV SCH (04:22)
[2018-08-16] MEDS: Enoxaparin 40 mg Syringe SC SCH (09:44)
[2018-08-16] MEDS: Pantoprazole 40 mg EC Tab PO SCH (09:45)
--- NOTE | 2018-08-16 10:43 | PCM.PSYCH ---
Initial Psychiatric Evaluation - Initial Psychiatric Evaluation Type of Admission: Voluntary Legal Status: Capacity History of Present Illness and Precipitating Events: Patient is a 32 year old female that presented to the [facility] ED on 08/14 and was admitted for severe headaches with perioral numbness and dysfunction of the tongue. Psychiatry was consulted for evaluation of depression. On examination patient was pleasant and cooperative. She was previously diagnosed with depression in 2018 and experienced an episode of severe post depression with suicidal ideation after she had a miscarriage, for which she was psychiatrically hospitalized from july 10-. She was prescribed Trazadone 50mg and Citalopram 10mg abd abilify to manage her symptoms. At the time of the exam, patient was not experiencing any feelings of anhedonia, decreased sleep quality, decreased appetite, feelings of guilt, or decreased activity. She comments that her medications have been helping her symptoms and that she feels a lot better. Patient denies current suicidal or homicidal ideations. Patient denies visual or auditory hallucinations. 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 Patient denies using alcohol, tobacco, or drugs. Current Medications: Active Medications Generic Name Dose Route Start Last Admin Trade Name Freq PRN Reason Stop Dose Admin Aspirin 325 mg 08/15/18 10:00 08/16/18 09:45 Aspirin PO 325 mg DAILY [facility] Administration Enoxaparin Sodium 40 mg 08/15/18 10:00 08/16/18 09:44 Lovenox SC 40 mg DAILY [facility] Administration Dextrose/Sodium Chloride 1,000 mls @ 75 mls/hr 08/15/18 00:45 08/16/18 04:22 Dextrose 5%/0.45% Ns 1000 Ml IV Not Given .[id number] [facility] Pantoprazole Sodium 40 mg 08/15/18 10:00 08/16/18 09:45 Protonix Ec Tab PO 40 mg DAILY [facility] Administration Past Psychiatric History - Past Psychiatric History Previous Treatment History: None Pertinent Medical Hx (Current Medical&Sleep Prob, Allergies): Allergies Allergy/AdvReac Type Severity Reaction Status Date / Time Penicillins Allergy RASH Verified 08/14/18 19:15 ARIPiprazole [Abilify] 2 mg PO HS 30 Days #30 tab 07/16/18 Escitalopram [Lexapro] 10 mg PO HS 30 Days #30 tab 07/16/18 traZODone [Desyrel] 50 mg PO HS PRN 30 Days #30 tab 07/16/18 Review of Systems - Review of Systems All systems: reviewed and no additional remarkable complaints except - Psychiatric Psychiatric: Anxiety, Irritability. absent: Suicidal Ideation Mental Status Examination - Personal Presentation Personal Presentation: Looks stated age - Affect Affect: Constricted, Depressed - Motor Activity Motor Activity: Calm - Reliability in Providing Information Reliability in Providing Information: Fair - Speech Speech: Organized - Mood Mood: Depressed, Anxious - Formal Thought Process Formal Thought Process: No Impairment - Obsessions/Compulsions Obsessions: No Compulsions: No - Cognitive Functions Orientation: Person, Place, Situation, Time Sensorium: Alert Attention/Concentration: Attentive Abstract Thinking: Orr Estimate of Intelligence: Below average Judgement: Intact, as evidence by: Good judgement, Intact, as evidence by: Insight regarding need for hospitalization - Strength & Assets Inventory Strength & Assets Inventory: Family support, Cooperative DSM 5 DX - DSM 5 DSM 5 Diagnosis: Major depressive disorder recurrent moderate - Recommended/Plan of Treatment Treatment Recommendations and Plan of Treatment: D/C Abilify Increase Citalopram to 20 mg Pt psychiatrically stable and clear for discharge - Smoking Cessation Smoking Cessation Initiated: No
--- NOTE | 2018-08-16 12:57 | CP.PCM.PN ---
Subjective - Date & Time of Evaluation Date of Evaluation: 08/16/18 Time of Evaluation: 11:45 - Subjective Subjective: clinically same Objective - Vital Signs/Intake and Output Vital Signs (last 24 hours): Temp Pulse Resp BP Pulse Ox 98.0 F 76 18 108/66 98 08/16/18 07:30 08/16/18 07:30 08/16/18 07:30 08/16/18 07:30 08/16/18 07:30 Intake and Output: 08/16/18 08/16/18 06:59 18:59 Intake Total 1680 Balance 1680 - Medications Medications: Current Medications Aspirin (Aspirin) 325 mg PO DAILY [facility] Last Admin: 08/16/18 09:45 Dose: 325 mg Enoxaparin Sodium (Lovenox) 40 mg SC DAILY [facility] Last Admin: 08/16/18 09:44 Dose: 40 mg Dextrose/Sodium Chloride (Dextrose 5%/0.45% Ns 1000 Ml) 1,000 mls @ 75 mls/hr IV .[id number] [facility] Last Admin: 08/16/18 04:22 Dose: Not Given Pantoprazole Sodium (Protonix Ec Tab) 40 mg PO DAILY [facility] Last Admin: 08/16/18 09:45 Dose: 40 mg - Labs Labs: 08/14/18 20:12 08/14/18 20:12 PT 11.1 SECONDS (9.7-12.2) 08/14/18 20:12 INR 1.0 08/14/18 20:12 APTT 26 SECONDS (21-34) 08/14/18 20:12
[2018-08-17] MEDS: Dextrose 5%/0.45% NS 1,000 ML IV SCH ×2 (00:53→06:00)
[2018-08-17] MEDS: Enoxaparin 40 mg Syringe SC SCH (10:19)
[2018-08-17] MEDS: Pantoprazole 40 mg EC Tab PO SCH (10:28)
[2018-08-17 17:28] VITALS: BP 129/76; PULSE 85; RESP 20; TEMP 972; O2SAT 100
--- NOTE | 2018-08-17 18:07 | CP.PCM.PN ---
Subjective - Date & Time of Evaluation Date of Evaluation: 08/17/18 Time of Evaluation: 15:00 Objective - Vital Signs/Intake and Output Vital Signs (last 24 hours): Temp Pulse Resp BP Pulse Ox 972 F H 85 20 129/76 100 08/17/18 15:00 08/17/18 15:00 08/17/18 15:00 08/17/18 15:00 08/17/18 15:00 Intake and Output: 08/17/18 08/17/18 06:59 18:59 Intake Total 1680 Balance 1680 - Labs Labs: 08/14/18 20:12 08/14/18 20:12 PT 11.1 SECONDS (9.7-12.2) 08/14/18 20:12 INR 1.0 08/14/18 20:12 APTT 26 SECONDS (21-34) 08/14/18 20:12
== END 2018-08-17 17:32 | disposition home or self-care (01) | DRG 34 ==
LOC: C.ER 19:00 → C.9E 21:44 → C.6T 08-15 01:10
PROVIDERS: ADMIT Internal Medicine Nephrology; ATTEND Internal Medicine Nephrology
DX: I67.1 Cerebral aneurysm, nonruptured (principal); F33.1 Major depressive disorder, recurrent, moderate; E78.5 Hyperlipidemia, unspecified; J45.909 Unspecified asthma, uncomplicated